=== PATIENT | male | born 1985 | race Asian ===

== ENCOUNTER 2022-01-01 07:34 | Emergency (ER) | payer SELFPAY ==
[~2022-01-01] VITALS: Ht 167.6 cm; Wt 54.9 kg
--- NOTE | 2022-01-01 07:50 | NUR ---
ambulatory, c/o fever, headache and generalized bodyaches since yesterday. denies any sick contact. low grade fever [employer]boat [employer]. states took a covid test and was negative yesterday. denies sob. tachy otherwise stable vitals. awaiting md quiros.
--- NOTE | 2022-01-01 08:13 | NUR ---
dr isbell at bedside for eval.
[2022-01-01] MEDS ORDERED: ONDANSETRON HCL/PF 4 MG/2 ML VIAL IV ONE (08:30)
[2022-01-01] MEDS ORDERED: KETOROLAC TROMETHAMINE INJ 30 MG/ML VIAL IV ONE (08:30)
[2022-01-01] MEDS ORDERED: IV NS 0.9% 1,000 ML IV ONE (08:30)
[2022-01-01] MEDS ORDERED: KETOROLAC TROMETHAMINE 15 MG/ML VIAL ONE (08:41)
[2022-01-01] MEDS ORDERED: ONDANSETRON HCL/PF 4 MG/2 ML VIAL ONE (08:42)
[2022-01-01] MEDS ORDERED: ONDA4TAB5 PO (09:26)
[2022-01-01] MEDS ORDERED: IBUP-1955 PO (09:26)
[2022-01-01] MEDS ORDERED: BENZ-13 PO (09:26)
--- NOTE | 2022-01-01 10:06 | NUR ---
Patient discharged to home in stable condition. Written and verbal after care instructions given. Patient verbalizes understanding of instruction.IV removed. Catheter intact and site benign. Pressure and 4x4 applied to site. No bleeding noted.
[2022-01-01 10:07] VITALS: BP 131/71
== END 2022-01-01 10:07 | disposition home or self-care (01) ==
LOC: ER 07:40
DX: J06.9 Acute upper respiratory infection, unspecified (principal); B97.89 Other viral agents as the cause of diseases classified elsewhere; Z20.822 Contact with and (suspected) exposure to COVID-19; R11.0 Nausea; R00.0 Tachycardia, unspecified
CPT/HCPCS: 99284; 96374; 96361; 96375; U0003; J2405; J7030; J1885; C9803